=== PATIENT | female | born 1960 | race Caucasian/White ===

== ENCOUNTER → 2017-08-28 | Outpatient (CLI) | payer OTHER | END | disposition home or self-care (01) | LOC: MAMMO 15:10 | PROVIDERS: ATTEND Internal Medicine | DX: Z12.31 Encounter for screening mammogram for malignant neoplasm of breast (principal) | CPT/HCPCS: 77067 ==

== ENCOUNTER → 2018-02-04 | Outpatient (CLI) | payer OTHER ==
--- NOTE | 2018-02-04 17:54 | Diagnostic Imaging Report ---
Lumbar Spine Radiographs: 6 views HISTORY: Pain COMPARISON: None available. DISCUSSION: Some of the osseous structures are partially obscured by stool and bowel gas. There are five non-rib bearing lumbar vertebral bodies. The alignment of the spine is within normal limits. No displaced fracture or compression deformity is identified. Vertebral body heights are maintained. Grade 1 retrolisthesis of L5 in relation to L4. L4-L5 and L5-S1 facet arthropathy. There is also L5-S1 disc space narrowing. IMPRESSION: L4-L5 and L5-S1 facet arthropathy and degenerative changes. Grade 1 retrolisthesis of L5 in relation to L4. Signed by: Dr. Wyatt Vargas MD on 02/04/2018 5:50 PM
== END ==
LOC: RAD 16:16
PROVIDERS: ATTEND Internal Medicine
DX: M54.5 Low back pain (principal)
CPT/HCPCS: 72110